=== PATIENT | female | born 1945 | race Caucasian/White ===

== ENCOUNTER 2018-08-05 08:45 | Inpatient (IN) | payer MEDICARE ==
[~2018-08-05] VITALS: Ht 157.4 cm; Wt 29.7 kg
--- NOTE | ~2018-08-05 | EKG ---
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
--- NOTE | ~2018-08-05 | EKG ---
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
[2018-08-08] MEDS ORDERED: FUROSEMIDE40 MG PO (10:25)
[2018-08-08] MEDS ORDERED: FEROSUL325 MG PO (10:26)
[2018-08-08] MEDS ORDERED: Carafate1 GM PO (10:27)
[2018-08-08] MEDS ORDERED: PREDNISONE5 MG PO (10:28)
[2018-08-08] MEDS ORDERED: MAPAP325 MG PO (10:28)
[2018-08-08] MEDS ORDERED: LEVOTHYROXINE75 MCG PO (10:28)
[2018-08-08] MEDS ORDERED: SIMVASTATIN20 MG PO (10:29)
[2018-08-08] MEDS ORDERED: IMDUR SA30 MG PO (10:29)
[2018-08-08 10:30] VITALS: BP 144/90
[2018-08-08 10:30] LABS: POTASSIUM 2.1 mmol/L (3.5-5.1)
[2018-08-08] MEDS ORDERED: PROAIR HFA8.5 GM INH (10:30)
[2018-08-08] MEDS ORDERED: LEFLUNOMIDE10 M1 PO (10:31)
[2018-08-08] MEDS ORDERED: ZONISAMIDE100 MG PO (10:31)
[2018-08-08] MEDS ORDERED: OMEPRAZOLE D/R20 MG PO (10:31)
[2018-08-08] MEDS ORDERED: Lopressor25 MG PO (10:32)
[2018-08-08] MEDS ORDERED: ZETIA10 MG PO (10:33)
[2018-08-08] MEDS ORDERED: LYRICA75 M1 PO (10:33)
[2018-08-08] MEDS ORDERED: HYDROXYZINE PAM25 M1 PO (10:34)
[2018-08-08] MEDS ORDERED: EPIPEN 2-P0.3 MG/0.3 IJ (10:34)
[2018-08-08] MEDS ORDERED: MIRTAZAPINE30 M2 PO (10:34)
[2018-08-08] MEDS ORDERED: MORPHINE SULFAT15 M7 PO (10:35)
[2018-08-08] MEDS ORDERED: DOK COLACE100 MG PO (10:35)
[2018-08-08] MEDS ORDERED: SILVADENE,SSD C50 GM T (10:36)
[2018-08-08] MEDS ORDERED: LINZESS145 MC1 PO (10:37)
[2018-08-08] MEDS ORDERED: Bactroban Oint22 GM T (10:37)
[2018-08-08 11:16] VITALS: BP 131/80
[2018-08-08 14:30] VITALS: BP 139/88
[2018-08-08] MEDS ORDERED: OXYBUTYNIN CHLOR5 MG PO (14:39)
[2018-08-08 14:45] VITALS: BP 139/88
[2018-08-08 20:00] VITALS: BP 146/76
[2018-08-09] VITALS (8 sets, daily range): BP systolic 103–143; BP diastolic 64–84
[2018-08-09 01:05] LABS: ALBUMIN 2.5 gm/dl (3.1-4.5); ALKALINE PHOSPHATASE 344 U/L (45-117); BUN 5 mg/dl (7-24); CHLORIDE 103 mmol/L (98-107); CREATININE 0.66 mg/dL (0.55-1.02); PHOSPHOROUS 1.5 mg/dL (2.5-4.9); POTASSIUM 3.3 mmol/L (3.5-5.1); SGOT/AST 30 IU/L (3-35); SGPT/ALT 14 U/L (12-78); SODIUM 133 mmol/L (136-145); TOTAL PROTEIN 5.4 gm/dL (6.4-8.2)
[2018-08-09 01:06] LABS: TROPONIN I 0.033 ng/ml (<0.045)
[2018-08-09 12:22] LABS: BASO # 0.1 10*3/uL (0.0-0.1); BASO % 0.9 % (0.0-1.0); EOS # 0.5 10*3/uL (0.0-0.4); EOS % 5.6 % (1.0-4.0); HEMATOCRIT 33.4 % (37.0-47.0); HEMOGLOBIN 10.6 g/dl (12.0-16.0); LYMPH # 2.1 10*3/uL (1.3-4.4); LYMPH % 24.2 % (27.0-41.0); MEAN CELL VOLUME 82.3 fl (81.0-99.0); MEAN CORPUSCULAR HGB 26.1 pg (27.0-31.0); MEAN CORPUSCULAR HGB CONC 31.7 g/dl (33.0-37.0); MEAN PLATELET VOLUME 9.6 fl (9.6-12.3); MONO # 0.9 10*3/uL (0.1-1.0); MONO % 10.7 % (3.0-9.0); NEUT # 5.1 10*3/uL (2.3-7.9); NEUT % 58.3 % (47.0-73.0); PLATELET COUNT AUTOMATED 341 10*3/uL (130-400); RED BLOOD COUNT 4.06 10*6/uL (4.10-5.10); RED CELL DISTRI WIDTH 18.1 % (0-14.5); WHITE BLOOD COUNT 8.8 10*3/uL (4.8-10.8)
[2018-08-09 12:39] LABS: ALBUMIN 2.5 gm/dl (3.1-4.5); ALKALINE PHOSPHATASE 328 U/L (45-117); BUN 4 mg/dl (7-24); CHLORIDE 104 mmol/L (98-107); CHOLESTEROL 118 mg/dL (<200); CREATININE 0.64 mg/dL (0.55-1.02); HDL CHOLESTEROL 55 mg/dl (40-60); LDL CHOLESTEROL 40 mg/dL (9-159); PHOSPHOROUS 1.3 mg/dL (2.5-4.9); POTASSIUM 3.1 mmol/L (3.5-5.1); SGOT/AST 26 IU/L (3-35); SGPT/ALT 13 U/L (12-78); SODIUM 135 mmol/L (136-145); TOTAL PROTEIN 5.2 gm/dL (6.4-8.2); TRIGLYCERIDES 114 mg/dl (<150); VLDL CHOLESTEROL 23 mg/dL (6-40)
[2018-08-09 12:52] LABS: ACT PARTIAL THROMBO TIME 25.9 SECONDS (20.8-31.5); INTERNATIONAL NORM RATIO 1.1 (2.0-3.5)
[2018-08-09 16:56] LABS: VITAMIN D, 25-HYDROXY 17.5 ng/mL (30-100)
[2018-08-10] VITALS: BP 155/89
[2018-08-10 08:02] LABS: ALBUMIN 2.4 gm/dl (3.1-4.5); ALKALINE PHOSPHATASE 337 U/L (45-117); BUN 2 mg/dl (7-24); CHLORIDE 104 mmol/L (98-107); CREATININE 0.56 mg/dL (0.55-1.02); POTASSIUM 2.9 mmol/L (3.5-5.1); SGOT/AST 27 IU/L (3-35); SGPT/ALT 13 U/L (12-78); SODIUM 135 mmol/L (136-145)
[2018-08-10 12:00] VITALS: BP 112/88
[2018-08-10 16:00] VITALS: BP 118/71
[2018-08-10 20:00] VITALS: BP 128/82
[2018-08-11] VITALS: BP 124/70
[2018-08-11 06:58] LABS: ALBUMIN 2.2 gm/dl (3.1-4.5); ALKALINE PHOSPHATASE 341 U/L (45-117); BUN 4 mg/dl (7-24); CHLORIDE 103 mmol/L (98-107); CREATININE 0.57 mg/dL (0.55-1.02); POTASSIUM 3.3 mmol/L (3.5-5.1); SGOT/AST 24 IU/L (3-35); SGPT/ALT 13 U/L (12-78); SODIUM 136 mmol/L (136-145); TOTAL PROTEIN 4.6 gm/dL (6.4-8.2)
[2018-08-11] MEDS ORDERED: OSMOLITE 1.2 C237 ML PO (11:26)
[2018-08-11 12:00] VITALS: BP 127/77
[2018-08-11 16:00] VITALS: BP 136/80
== END 2018-08-11 16:25 | disposition home or self-care (01) | DRG 641 ==
LOC: SDC 08:45 → EDSTATUS 08-08 08:45 → SDC 08-08 11:00 → 5E 08-08 13:00
PROVIDERS: Internal Medicine Nephrology; Registered Nurse
PROC: 0DJ08ZZ Inspection of Upper Intestinal Tract, Via Natural or Artificial Opening Endoscopic (ICD-10-PCS; principal; 2018-08-10)
PROC: 0DJD8ZZ Inspection of Lower Intestinal Tract, Via Natural or Artificial Opening Endoscopic (ICD-10-PCS; principal; 2018-08-10)
DX: E87.6 Hypokalemia (principal); E44.0 Moderate protein-calorie malnutrition; E27.40 Unspecified adrenocortical insufficiency; Z68.1 Body mass index [BMI] 19.9 or less, adult; M79.7 Fibromyalgia; I25.10 Atherosclerotic heart disease of native coronary artery without angina pectoris; K57.30 Diverticulosis of large intestine without perforation or abscess without bleeding; K29.60 Other gastritis without bleeding; M06.9 Rheumatoid arthritis, unspecified; F32.9 Major depressive disorder, single episode, unspecified; K44.9 Diaphragmatic hernia without obstruction or gangrene; I10 Essential (primary) hypertension; M19.90 Unspecified osteoarthritis, unspecified site; E03.9 Hypothyroidism, unspecified; E87.1 Hypo-osmolality and hyponatremia; Z85.3 Personal history of malignant neoplasm of breast; Z90.49 Acquired absence of other specified parts of digestive tract; Z90.721 Acquired absence of ovaries, unilateral; Z79.899 Other long term (current) drug therapy; Z79.52 Long term (current) use of systemic steroids; Z91.19 Patient's noncompliance with other medical treatment and regimen; Z93.1 Gastrostomy status